=== PATIENT | male | born 1985 | race Caucasian/White ===

== ENCOUNTER 2019-10-14 13:23 | Emergency (ER) | payer OTHER, BC ==
[2019-10-14 13:44] VITALS: BP 145/90; PULSE 104
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
== END 2019-10-14 15:11 | disposition home or self-care (01) ==
LOC: MW.ED 13:23
DX: Z77.21 Contact with and (suspected) exposure to potentially hazardous body fluids (principal); I10 Essential (primary) hypertension
CPT/HCPCS: 99282

== ENCOUNTER 2020-04-19 06:34 | Day surgery (SDC) | payer BC, OTHER ==
[~2020-04-19 06:34] MED LIST: Lactated Ringers 1,000 ML IV SCH
[2020-04-19] MEDS ORDERED: fentaNYL 100 MCG/2 ML SDV ONE (07:15)
[2020-04-19] MEDS ORDERED: Lidocaine 2% 5 ML SDV ONE (07:15)
[2020-04-19] MEDS ORDERED: HYDROmorphone 2 MG/ML Syringe ONE (07:15)
[2020-04-19] MEDS ORDERED: Propofol 200 MG/20 ML SDV ONE (07:15)
[2020-04-19] MEDS ORDERED: Ondansetron 4 MG/2 ML SDV ONE (07:15)
[2020-04-19] MEDS ORDERED: Midazolam 1 MG/ML 2 ML SDV ONE (07:16)
--- NOTE | 2020-04-19 07:16 | PCM.PREANE ---
Preanesthetic Assessment - Anesthesia/Transfusion/Family Hx Anesthesia History: No Prior Anesthesia Family History of Anesthesia Reaction: No Transfusion History: No Prior Transfusion(s) Intubation History: Unknown - Review of Systems General: No Symptoms Pulmonary: No Symptoms Cardiovascular: No Symptoms Gastrointestinal: No Symptoms Neurological: No Symptoms Other: Reports: None - Physical Assessment Height: 5 ft 7 in Weight: 143.335 kg ASA Class: 3 Mental Status: Alert & Oriented x3 Airway Class: Mallampati = 3 Dentition: Reports: Broken Tooth/Teeth, Caries (significant caries on all teeth) Thyro-Mental Finger Breadths: 3 Mouth Opening Finger Breadths: 2 (small mouth) ROM/Head Extension: Limited/Partial Lungs: Clear to Auscultation, Normal Respiratory Effort Cardiovascular: Regular Rate, Regular Rhythm - Allergies Allergies/Adverse Reactions: Allergies Allergy/AdvReac Type Severity Reaction Status Date / Time mushroom Allergy Airway Verified 04/14/20 11:20 Tightness - Blood Blood Available: No - Anesthesia Plan Pre-Op Medication Ordered: None - Acknowledgements Anesthesia Type Planned: General Anesthesia Pt an Appropriate Candidate for the Planned Anesthesia: Yes Alternatives and Risks of Anesthesia Discussed w Pt/Guardian: Yes Pt/Guardian Understands and Agrees with Anesthesia Plan: Yes PreAnesthesia Questionnaire HEENT History: Reports: Other (See Below) Other HEENT History: uses reading glasses Cardiovascular History: Reports: Other (See Below) Other Cardiovascular History: occasional hypertension- no medications Neurological History: Reports: Concussion, Other (See Below) Other Neuro History: 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 [No Known Home Meds] 10/14/19 [History] - CURRENT (IN HOUSE) MEDS Current Meds: Current Medications Lactated Ringer's (Ringers, Lactated) 1,000 mls @ 125 mls/hr IV ASDIRECTED [facility]
[2020-04-19] MEDS ORDERED: Bupivacaine 0.5% 10 ML SDV ONE (07:21)
[2020-04-19] MEDS ORDERED: Succinylcholine/Sod PF 100 MG/5 ML SYRINGE IV ONE (07:32)
[2020-04-19] MEDS ORDERED: Rocuronium Bromide 50 MG/5 ML Syringe ONE (07:32)
[2020-04-19] MEDS ORDERED: Acetaminophen 325 MG Tab PO PRN (09:23)
[2020-04-19] MEDS ORDERED: Acetaminophen/HYDROcodone 325-5 MG Tab PO PRN (09:23)
[2020-04-19] MEDS ORDERED: Ondansetron 4 MG/2 ML SDV IVPUSH PRN (09:23)
--- NOTE | 2020-04-19 09:25 | PCM.OPNOTE ---
- General Post-Op/Procedure Note Date of Surgery/Procedure: 04/19/20 Operative Procedure(s): Excision 9 cm right posterior occipital mass Pre Op Diagnosis: Enlarging right occipital mass Post-Op Diagnosis: Same Anesthesia Technique: General ET Tube (ASA III) Primary Surgeon: Varinder Meredith Fluid Replacement, Intraop: 600 EBL in mLs: 5 Condition: Good Free Text/Narrative:: DICTATION [id number] CPT CODE [id number]
[2020-04-19] MEDS ORDERED: Lactated Ringers 1,000 ML IV SCH (09:30)
--- NOTE | 2020-04-19 10:10 | PCM.POSTAN ---
POST ANESTHESIA ASSESSMENT - MENTAL STATUS Mental Status: Alert, Oriented - VITAL SIGNS Vital Signs: Last Vital Signs Temp 36.3 C 04/19/20 09:06 Pulse 103 H 04/19/20 09:28 Resp 15 04/19/20 09:28 BP 140/91 H 04/19/20 09:28 Pulse Ox 95 04/19/20 09:28 - RESPIRATORY Respiratory Status: Respiratory Rate WNL, Airway Patent, O2 Saturation Stable - CARDIOVASCULAR CV Status: Pulse Rate WNL, Blood Pressure Stable - GASTROINTESTINAL GI Status: No Symptoms - PAIN Pain Score: 1 - POST OP HYDRATION Hydration Status: Adequate & Stable - OBSERVATIONS Free Text/Narrative:: No anesthesia problems
--- NOTE | 2020-04-19 10:10 | PCM48HPAN ---
Post Anesthesia Note - EVALUATION WITHIN 48HRS OF ANESTHETIC Vital Signs in Normal Range: Yes Patient Participated in Evaluation: Yes Respiratory Function Stable: Yes Airway Patent: Yes Cardiovascular Function Stable: Yes Hydration Status Stable: Yes Pain Control Satisfactory: Yes Nausea and Vomiting Control Satisfactory: Yes Mental Status Recovered: Yes Vital Signs: Last Vital Signs Temp 36.3 C 04/19/20 09:06 Pulse 103 H 04/19/20 09:28 Resp 15 04/19/20 09:28 BP 140/91 H 04/19/20 09:28 Pulse Ox 95 04/19/20 09:28 - COMMENTS/OBSERVATIONS Free Text/Narrative:: No anesthesia problems
[2020-04-19 11:55] VITALS: BP 137/90; PULSE 95
--- NOTE | 2020-04-19 12:27 | OR ---
SURGEON: Varinder Meredith M.D. DATE OF PROCEDURE: 04/19/2020 OPERATION PERFORMED: Excision of right posterior neck mass. PRIMARY SURGEON: Varinder Meredith MD ANESTHESIA: General endotracheal ASA CLASSIFICATION: III. PREOPERATIVE DIAGNOSIS: Symptomatic right occipital mass. POSTOPERATIVE DIAGNOSIS: Symptomatic right occipital mass. ESTIMATED BLOOD LOSS: 5 mL. INTRAOPERATIVE FLUID REPLACEMENT: 600 mL of crystalloid. DESCRIPTION OF PROCEDURE: The patient was taken to the operating room and kept on the transfer cart. Following satisfactory attainment of general endotracheal anesthesia, he was placed in the left lateral decubitus position with care taken to pad bony prominences. The patient was secured on the beanbag and with multiple straps. The right posterior occipital area was prepped with Betadine solution and sterile drapes were applied. The skin was infiltrated with 10 mL of 0.5% Marcaine solution. Skin incision was made and deepened through the subcutaneous tissue obtaining hemostasis with the use of electrocautery. The mass was circumferentially dissected using electrocautery. The mass was then removed. Bleeding sites were electrocoagulated. One bleeding site was suture ligated with 3-0 Vicryl. The wound was inspected for hemostasis and no other bleeding was noted. The incision was then closed in 2 layers approximating the subcutaneous tissue with 3-0 Vicryl and the skin with running locked 3-0 nylon. The lipoma itself measured 9 cm and the layered closure was 9 cm in length. The patient tolerated the procedure well. He was placed back on the transfer cart in the supine position. Following emergence from anesthesia and extubation, he was taken to recovery room in stable condition. JUAN / SUMAYA /[id number]
== END 2020-04-19 10:15 | disposition home or self-care (01) ==
LOC: MW.SDS 06:34
PROVIDERS: ATTEND Surgery
DX: D17.0 Benign lipomatous neoplasm of skin and subcutaneous tissue of head, face and neck (principal); E66.9 Obesity, unspecified; Z68.42 Body mass index [BMI] 45.0-49.9, adult
CPT/HCPCS: 21012; 88304; J0330; J1170; J2001; J2250; J2704; J3010; J3490; J7120; 00300; J2405

== ENCOUNTER 2023-11-07 13:47 | Emergency (ER) | payer OTHER, BC ==
[2023-11-07 14:59] VITALS: BP 164/103; PULSE 117
== END 2023-11-07 15:00 | disposition home or self-care (01) ==
LOC: MW.ED 13:47
DX: S67.01XA Crushing injury of right thumb, initial encounter (principal); Z75.8 Other problems related to medical facilities and other health care; Y04.0XXA Assault by unarmed brawl or fight, initial encounter
CPT/HCPCS: 73140-26-F5; 73140-F5; 99283